=== PATIENT | female | born 1980 | race Two or more races ===

== ENCOUNTER 2022-12-06 11:59 | Emergency (ER) | payer OTHER ==
[~2022-12-06] VITALS: Ht 160 cm; Wt 76.1 kg
[2022-12-06] MEDS ORDERED: SERO200T PO (12:47)
[2022-12-06] MEDS ORDERED: PROZ20CA11 PO (12:47)
[2022-12-06] MEDS ORDERED: IBUP-1114 PO (12:47)
[2022-12-06] MEDS ORDERED: KETOROLAC 30 MG/ML 1ML VIAL IV ONE (14:00)
[2022-12-06 14:03] LABS: URIC ACID 5.3 MG/DL (3.1-7.8)
[2022-12-06 14:04] LABS: C REACTIVE PROTEIN QUANTITATIV < 0.40 MG/DL (<1.0)
[2022-12-06 14:06] LABS: ALBUMIN 3.9 G/DL (3.2-5.2); ALKALINE PHOSPHATASE 68 U/L (46-116); ALT/SGPT 14 U/L (7.0-40); AST/SGOT 16 U/L (<34); BILIRUBIN,DIRECT 0.1 MG/DL (<0.4); BILIRUBIN,TOTAL 0.4 MG/DL (0.3-1.2); TOTAL PROTEIN 6.9 G/DL (5.7-8.2)
[2022-12-06 14:15] LABS: BASO % 0.5 % (0.0-1.0); EOS # 0.1 10^3/uL (0.0-0.5); EOS % 2.1 % (0.0-3.0); HEMATOCRIT 35.7 % (36.0-47.0); HEMOGLOBIN 11.5 g/dl (12.0-15.5); LYMPH # 1.7 10^3/uL (1.5-5.0); MEAN CORPUSCULAR HEMOGLOBIN 30.6 pg (27.0-33.0); MEAN CORPUSCULAR HGB CONC 32.2 g/dl (32.0-36.5); MEAN CORPUSCULAR VOLUME 94.9 fl (80.0-96.0); MONO # 0.5 10^3/uL (0.0-0.8); MONO % 11.7 % (2.0-8.0); NEUTROPHILS % 45.5 % (36.0-66.0); PLATELET COUNT, AUTOMATED 244 10^3/uL (150-450); RED BLOOD COUNT 3.76 10^6/uL (4.00-5.40); WHITE BLOOD COUNT 4.3 10^3/uL (4.0-10.0)
[2022-12-06 14:26] LABS: INR 0.96
[2022-12-06 14:27] LABS: PARTIAL THROMBOPLASTIN TIME 28.3 SECONDS (24.8-34.2)
[2022-12-06 14:43] LABS: ERYTHROCYTE SEDIMENTATION RATE 18 mm/hr (0-20)
[2022-12-06] MEDS ORDERED: PRED10TA2 PO (15:07)
[2022-12-06 15:16] VITALS: BP 142/83
[2022-12-09 13:08] LABS: ANTINUCLEAR ANTIBODIES DIRECT Negative (Negative)
== END 2022-12-06 15:25 | disposition home or self-care (01) ==
LOC: M ED 11:59
DX: R22.43 Localized swelling, mass and lump, lower limb, bilateral (principal); M25.562 Pain in left knee; M25.561 Pain in right knee; Z98.84 Bariatric surgery status; Z98.51 Tubal ligation status; Z88.1 Allergy status to other antibiotic agents; Z79.899 Other long term (current) drug therapy
CPT/HCPCS: 73564; 80047; 80076; 83880; 84550; 85025; 85610; 85652; 85730; 86038; 86140; 86431; 86618; 96374; 99283; J1885

== ENCOUNTER → 2023-02-03 | Outpatient (REF) ==
[~2023-02-03] MED LIST: IBUP-1114 PO; PRED10TA2 PO; PROZ20CA11 PO; SERO200T PO
[2023-02-03 14:50] LABS: RSV AMPLIFICATION NEGATIVE (NEGATIVE)
== END ==
LOC: M EMP 08:17
PROVIDERS: ATTEND Family Medicine
DX: Z11.52 Encounter for screening for COVID-19 (principal)

== ENCOUNTER → 2023-02-03 | Outpatient (REF) | payer OTHER | LOC: M WUC 19:08 | PROVIDERS: ATTEND Physician Assistant | DX: J06.9 Acute upper respiratory infection, unspecified (principal) ==

== ENCOUNTER 2023-06-18 04:53 | Emergency (ER) | payer OTHER ==
[~2023-06-18] VITALS: Ht 160 cm; Wt 80.9 kg
[2023-06-18] MEDS ORDERED: DIAZ2TAB (04:59)
[2023-06-18] MEDS ORDERED: ACET-683 PO (05:00)
[2023-06-18] MEDS ORDERED: ACETAMINOPHEN 325 MG TAB PO ONE (06:25)
[2023-06-18] MEDS ORDERED: NAPR-837 PO (07:08)
[2023-06-18] MEDS ORDERED: ANEC4CRE3 TOP (07:08)
[2023-06-18 07:34] VITALS: BP 134/87; TEMP 97.2; O2SAT 98
== END 2023-06-18 07:46 | disposition home or self-care (01) ==
LOC: M ED 04:53
DX: M25.462 Effusion, left knee (principal); M79.672 Pain in left foot; F31.9 Bipolar disorder, unspecified; Z98.84 Bariatric surgery status; Z88.0 Allergy status to penicillin; Z88.1 Allergy status to other antibiotic agents; Z79.899 Other long term (current) drug therapy

== ENCOUNTER → 2023-07-31 | Outpatient (CLI) | payer OTHER ==
[~2023-07-31] MED LIST changes: +ACET-683 PO; +ANEC4CRE3 TOP; +DIAZ2TAB; +NAPR-837 PO
[2023-07-31 11:57] LABS: BASO % 0.6 % (0.0-1.0); EOS # 0.1 10^3/uL (0.0-0.5); EOS % 3.2 % (0.0-3.0); HEMATOCRIT 37.3 % (36.0-47.0); HEMOGLOBIN 12.3 g/dl (12.0-15.5); LYMPH # 1.7 10^3/uL (1.5-5.0); LYMPH % 49.1 % (24.0-44.0); MEAN CORPUSCULAR HEMOGLOBIN 31.5 pg (27.0-33.0); MEAN CORPUSCULAR VOLUME 95.4 fl (80.0-96.0); MONO # 0.4 10^3/uL (0.0-0.8); MONO % 12.5 % (2.0-8.0); NEUTROPHILS # 1.2 10^3/uL (1.5-8.5); NEUTROPHILS % 34.3 % (36.0-66.0); PLATELET COUNT, AUTOMATED 253 10^3/uL (150-450); RED BLOOD COUNT 3.91 10^6/uL (4.00-5.40); WHITE BLOOD COUNT 3.4 10^3/uL (4.0-10.0)
[2023-07-31 12:16] LABS: ALKALINE PHOSPHATASE 66 U/L (46-116); ALT/SGPT 29 U/L (7.0-40); AST/SGOT 21 U/L (<34); BILIRUBIN,TOTAL 0.6 MG/DL (0.3-1.2); BLOOD UREA NITROGEN 10 MG/DL (9-23); CALCIUM LEVEL 8.8 MG/DL (8.5-10.1); CARBON DIOXIDE LEVEL 27 MMOL/L (20-31); CHLORIDE LEVEL 105 MMOL/L (98-107); CREATININE FOR GFR 0.64 MG/DL (0.55-1.30); GLOMERULAR FILTRATION RATE > 60.0 (>58); GLUCOSE, FASTING 84 MG/DL (60-100); POTASSIUM SERUM 3.8 MMOL/L (3.5-5.1); SODIUM LEVEL 141 MMOL/L (136-145); TOTAL PROTEIN 7.1 G/DL (5.7-8.2)
== END ==
LOC: M LAB 09:17
PROVIDERS: ATTEND Nurse Practitioner Family
DX: L63.9 Alopecia areata, unspecified (principal)

== ENCOUNTER → 2023-11-24 | Outpatient (CLI) | payer OTHER ==
[2023-11-24 10:13] LABS: BASO % 0.5 % (0.0-1.0); EOS # 0.1 10^3/uL (0.0-0.5); EOS % 3.4 % (0.0-3.0); HEMATOCRIT 37.7 % (36.0-47.0); HEMOGLOBIN 12.1 g/dl (12.0-15.5); LYMPH # 1.8 10^3/uL (1.5-5.0); LYMPH % 45.8 % (24.0-44.0); MEAN CORPUSCULAR HEMOGLOBIN 29.2 pg (27.0-33.0); MEAN CORPUSCULAR HGB CONC 32.1 g/dl (32.0-36.5); MEAN CORPUSCULAR VOLUME 90.8 fl (80.0-96.0); MONO # 0.4 10^3/uL (0.0-0.8); MONO % 9.9 % (2.0-8.0); NEUTROPHILS # 1.6 10^3/uL (1.5-8.5); NEUTROPHILS % 40.4 % (36.0-66.0); PLATELET COUNT, AUTOMATED 291 10^3/uL (150-450); RED BLOOD COUNT 4.15 10^6/uL (4.00-5.40); WHITE BLOOD COUNT 3.8 10^3/uL (4.0-10.0)
[2023-11-24 10:37] LABS: ALBUMIN 4.3 G/DL (3.2-5.2); ALKALINE PHOSPHATASE 85 U/L (46-116); ALT/SGPT 24 U/L (7.0-40); AST/SGOT 40 U/L (<34); BILIRUBIN,TOTAL 0.6 MG/DL (0.3-1.2); BLOOD UREA NITROGEN 9 MG/DL (9-23); CALCIUM LEVEL 9.3 MG/DL (8.5-10.1); CARBON DIOXIDE LEVEL 26 MMOL/L (20-31); CHLORIDE LEVEL 109 MMOL/L (98-107); GLOMERULAR FILTRATION RATE > 60.0 (>58); GLUCOSE, FASTING 83 MG/DL (60-100); IRON (FE) 77 UG/DL (50-170); PERCENT SATURATION 21.8 % (13.2-45.0); POTASSIUM SERUM 3.7 MMOL/L (3.5-5.1); SODIUM LEVEL 135 MMOL/L (136-145); TOTAL IRON BINDING CAPACITY 353 UG/DL (250-425); TOTAL PROTEIN 7.5 G/DL (5.7-8.2)
[2023-11-24 10:38] LABS: FERRITIN 38.7 NG/ML (7.3-270.7); THYROID STIMULATING HORMONE 3.457 uIU/ML (0.55-4.78)
[2023-11-24 10:39] LABS: FREE T4 1.19 NG/DL (0.89-1.76); VITAMIN B12 LEVEL 793 PG/ML (211-911)
== END ==
LOC: M LAB 09:07
PROVIDERS: ATTEND Nurse Practitioner Family
DX: L63.9 Alopecia areata, unspecified (principal)

== ENCOUNTER → 2024-05-27 | Outpatient (CLI) | payer OTHER ==
[2024-05-27 12:01] LABS: BASO % 0.6 % (0.0-1.0); EOS # 0.1 10^3/uL (0.0-0.5); EOS % 1.4 % (0.0-3.0); HEMATOCRIT 37.2 % (36.0-47.0); HEMOGLOBIN 12.2 g/dl (12.0-15.5); LYMPH # 1.3 10^3/uL (1.5-5.0); LYMPH % 37.7 % (24.0-44.0); MEAN CORPUSCULAR HEMOGLOBIN 30.8 pg (27.0-33.0); MEAN CORPUSCULAR HGB CONC 32.8 g/dl (32.0-36.5); MEAN CORPUSCULAR VOLUME 93.9 fl (80.0-96.0); MONO # 0.3 10^3/uL (0.0-0.8); MONO % 8.7 % (2.0-8.0); NEUTROPHILS # 1.8 10^3/uL (1.5-8.5); NEUTROPHILS % 51.3 % (36.0-66.0); PLATELET COUNT, AUTOMATED 257 10^3/uL (150-450); RED BLOOD COUNT 3.96 10^6/uL (4.00-5.40); WHITE BLOOD COUNT 3.6 10^3/uL (4.0-10.0)
[2024-05-27 12:07] LABS: ERYTHROCYTE SEDIMENTATION RATE 18 mm/hr (0-20)
[2024-05-27 12:09] LABS: APPEARANCE, URINE HAZY (CLEAR); BACTERIA, URINE AUTO NEGATIVE (NEGATIVE); BILIRUBIN, URINE AUTO NEGATIVE (NEGATIVE); BLOOD, URINE BLOOD NEGATIVE (NEGATIVE); COLOR, URINE AMBER (YELLOW); GLUCOSE, URINE (UA) AUTO NEGATIVE (NEGATIVE); KETONE, URINE AUTO TRACE mg/dL (NEGATIVE); LEUKOCYTE ESTERASE, URINE AUTO NEGATIVE (NEGATIVE); MUCUS, URINE LARGE (NEGATIVE); NITRITE, URINE AUTO NEGATIVE (NEGATIVE); PROTEIN, URINE AUTO 1+ mg/dL (NEGATIVE); RBC, URINE AUTO 2 /HPF (0-3); SPECIFIC GRAVITY URINE AUTO 1.021 (1.002-1.035); SQUAMOUS EPITHELIAL CELL UR AU 1 /HPF (0-6); WBC, URINE AUTO 1 /HPF (0-3)
[2024-05-27 12:27] LABS: C REACTIVE PROTEIN QUANTITATIV < 0.40 MG/DL (<1.0)
[2024-05-27 12:27] LABS: TOTAL PROTEIN,RANDOM URINE 9.3 MG/DL (0.0-14.0)
[2024-05-27 12:30] LABS: COMPLEMENT C3 146.1 MG/DL (90.0-170.0)
[2024-05-27 12:31] LABS: COMPLEMENT C4 56.7 MG/DL (12-36)
[2024-05-27 12:43] LABS: CREATININE,RANDOM URINE 316.4 MG/DL
== END ==
LOC: M RAD 11:03
PROVIDERS: ATTEND Internal Medicine
DX: M25.50 Pain in unspecified joint (principal); R76.8 Other specified abnormal immunological findings in serum

== ENCOUNTER 2024-07-27 15:08 | Emergency (ER) | payer OTHER ==
[~2024-07-27] VITALS: Ht 160 cm; Wt 74.1 kg
[2024-07-27 18:58] VITALS: TEMP 98.9
[2024-07-27] MEDS: NORCO, ANEXSIA 5/325MG TABLET (HYDROcodone/ACETAMINOPHEN) PO ONE (20:07)
[2024-07-27 20:51] LABS: BASO % 0.5 % (0.0-1.0); EOS # 0.1 10^3/uL (0.0-0.5); EOS % 1.4 % (0.0-3.0); HEMATOCRIT 36.6 % (36.0-47.0); HEMOGLOBIN 12.3 g/dl (12.0-15.5); LYMPH # 2.5 10^3/uL (1.5-5.0); LYMPH % 44.7 % (24.0-44.0); MEAN CORPUSCULAR HEMOGLOBIN 31.1 pg (27.0-33.0); MEAN CORPUSCULAR HGB CONC 33.6 g/dl (32.0-36.5); MEAN CORPUSCULAR VOLUME 92.4 fl (80.0-96.0); MONO # 0.5 10^3/uL (0.0-0.8); MONO % 8.4 % (2.0-8.0); NEUTROPHILS # 2.5 10^3/uL (1.5-8.5); NEUTROPHILS % 44.6 % (36.0-66.0); PLATELET COUNT, AUTOMATED 280 10^3/uL (150-450); RED BLOOD COUNT 3.96 10^6/uL (4.00-5.40); WHITE BLOOD COUNT 5.6 10^3/uL (4.0-10.0)
[2024-07-27 20:55] LABS: C REACTIVE PROTEIN QUANTITATIV < 0.40 MG/DL (<1.0)
[2024-07-27 20:57] LABS: BLOOD UREA NITROGEN 9 MG/DL (9-23); CALCIUM LEVEL 9.6 MG/DL (8.5-10.1); CARBON DIOXIDE LEVEL 29 MMOL/L (20-31); CHLORIDE LEVEL 105 MMOL/L (98-107); CREATININE FOR GFR 0.52 MG/DL (0.55-1.30); GLOMERULAR FILTRATION RATE > 60.0 (>58); GLUCOSE, FASTING 80 MG/DL (60-100); POTASSIUM SERUM 3.9 MMOL/L (3.5-5.1); SODIUM LEVEL 139 MMOL/L (136-145)
[2024-07-27] MEDS: KETOROLAC 30 MG/ML 1ML VIAL IV ONE (21:12)
[2024-07-27 21:27] LABS: ERYTHROCYTE SEDIMENTATION RATE 28 mm/hr (0-20)
[2024-07-27 22:17] VITALS: BP 169/97; O2SAT 100
== END 2024-07-27 22:19 | disposition home or self-care (01) ==
LOC: M ED 15:08
DX: M25.462 Effusion, left knee (principal); F43.10 Post-traumatic stress disorder, unspecified; F41.9 Anxiety disorder, unspecified; F17.210 Nicotine dependence, cigarettes, uncomplicated; F10.10 Alcohol abuse, uncomplicated; Z88.1 Allergy status to other antibiotic agents; Z88.8 Allergy status to other drugs, medicaments and biological substances; Z79.1 Long term (current) use of non-steroidal anti-inflammatories (NSAID); Z79.899 Other long term (current) drug therapy
CPT/HCPCS: 36415; 73564; 80048; 85025; 85652; 86140; 87040; 96374; 99284; J1885

== ENCOUNTER → 2024-10-26 | Outpatient (REF) | LOC: M PLAIMG 12:57 | PROVIDERS: ATTEND Internal Medicine | DX: R52 Pain, unspecified (principal) ==

== ENCOUNTER → 2024-11-30 | Outpatient (CLI) | payer OTHER ==
[~2024-11-30] MED LIST changes: +LIDOCAINE 1% MDV 20ML VIAL SC ONE
[2024-11-30 09:25] VITALS: BP 121/69; TEMP 98.3; O2SAT 100
== END ==
LOC: M IRPRO 09:15
PROVIDERS: ATTEND Orthopaedic Surgery
DX: M71.22 Synovial cyst of popliteal space [Baker], left knee (principal); Z96.652 Presence of left artificial knee joint

== ENCOUNTER → 2024-12-23 | Outpatient (CLI) | payer OTHER ==
[~2024-12-23] MED LIST changes: +ADDE1TAB14 PO; +AJOV225I SC; +BIOT1TAB6 PO; +CALC600T57 PO; +DEKA1CHW PO; +DICL100G10 TOP; +FAMO10TA50 PO; +HYDR-3363 PO; +HYDR-4514 PO; +ICY5PAD2 EX; +K 10100T PO; +KETO120S5 TOP; +KP F1200 PO; +LATU20TA PO; +LIDO5CRE6 EX; +LIDO5DIS41 TD; -LIDOCAINE 1% MDV 20ML VIAL SC ONE; +LYRI200C PO; +MENT118G7 TP; +MIRA3350 PO; +MM S100C PO; +NARC1SPR; +OMEP1CAP73 PO; +PROBCAP14 PO; +RA M500C PO; +SENN-186 PO; +TRAZ1TAB10 PO; +TURM500C5 PO; +VITA-243 PO; +VITA-297 PO; +VITA100093 PO; +[UNRECOGNIZED DRUG - CODE] EX; +[UNRECOGNIZED DRUG - OTHER] PO
== END ==
LOC: M WHC 14:17
PROVIDERS: ATTEND Internal Medicine
DX: Z12.31 Encounter for screening mammogram for malignant neoplasm of breast (principal)